=== PATIENT | female | born 1965 | race American Indian/Alaskan Native ===

== ENCOUNTER 2019-06-18 18:12 | Emergency (ER) | payer BC ==
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
[2019-06-18 22:32] VITALS: BP 115/56
== END 2019-06-18 22:00 | disposition home or self-care (01) ==
LOC: ED 18:12
DX: M54.2 Cervicalgia (principal); M54.5 Low back pain; R10.2 Pelvic and perineal pain; M79.605 Pain in left leg; M25.531 Pain in right wrist; Z90.710 Acquired absence of both cervix and uterus; Z98.890 Other specified postprocedural states; V49.49XA Driver injured in collision with other motor vehicles in traffic accident, initial encounter; Y93.89 Activity, other specified; Y92.410 Unspecified street and highway as the place of occurrence of the external cause; Y99.8 Other external cause status
CPT/HCPCS: 72040; 72100; 72170